=== PATIENT | male | born 1985 ===

== ENCOUNTER 2016-10-10 13:05 | Emergency (ER) | payer OTHER ==
[2016-10-10 13:36] VITALS: BP 132/79; PULSE 66; RESP 20; TEMP 97.8; O2SAT 98
[2016-10-10 13:37] VITALS: BMI 28.8
--- NOTE | 2016-10-10 13:59 | ED PDOC ---
HPI: Back Time Seen by Provider: 10/10/16 13:38 History Per: Patient History/Exam Limitations: no limitations Onset/Duration Of Symptoms: Days (2) Current Symptoms Are (Timing): Still Present Quality Of Discomfort: "Pain" Severity: Moderate Previous Symptoms: None Associated Symptoms: None Exacerbating Factor(s): Movement Additional History Per: Patient Additional Complaint(s): The pt is a 30yo male presents to the ED for evaluation of back pain which started yesterday. Pt reports 3 days ago, he was lifting heavy furniture around his house and yesterday noticed pain in his left lower back. Additionally, pt states yesterday when attempting to get out of a car, his pain worsened and has been progressively worse since then. Pt also reports today he noticed a "lump" in the location of pain, prompting his ED visit. Pt states he took Tylenol for pain with no relief. Pt denies any incontinence or urinary symptoms. Offers no additional medical complaints. Past Medical History Reviewed: Historical Data, Nursing Documentation, Vital Signs Vital Signs: Last Vital Signs Temp 97.8 F 10/10/16 13:36 Pulse 66 10/10/16 13:36 Resp 20 10/10/16 13:36 BP 132/79 10/10/16 13:36 Pulse Ox 98 10/10/16 13:36 - Medical History PMH: No Chronic Diseases - Surgical History Surgical History: No Surg Hx - Family History Family History: States: Unknown Family Hx - Living Arrangements Living Arrangements: With Family - Home Medications Home Medications: Ambulatory Orders Medication Instructions Recorded Cyclobenzaprine [Cyclobenzaprine 10 mg PO Q8 PRN #30 tab 10/10/16 HCl] Naproxen [Naprosyn] 500 mg PO BID PRN #30 tab 10/10/16 - Allergies Allergies/Adverse Reactions: Allergies Allergy/AdvReac Type Severity Reaction Status Date / Time Unobtainable Allergy Verified 01/31/13 10:30 Review of Systems ROS Statement: Except As Marked, All Systems Reviewed And Found Negative Genitourinary Male: Negative for: Dysuria, Incontinence Musculoskeletal: Positive for: Back Pain Physical Exam - Reviewed Nursing Documentation Reviewed: Yes Vital Signs Reviewed: Yes - Physical Exam Appears: Positive for: Well, Non-toxic, No Acute Distress Head Exam: Positive for: ATRAUMATIC, NORMAL INSPECTION, NORMOCEPHALIC Skin: Positive for: Normal Color Eye Exam: Positive for: Normal appearance Neck: Positive for: Normal Cardiovascular/Chest: Positive for: Regular Rate, Rhythm Respiratory: Negative for: Respiratory Distress Back: Positive for: Muscle Spasm (left lower back) Neurologic/Psych: Positive for: Alert, Oriented - ECG O2 Sat by Pulse Oximetry: 98 (RA) Pulse Ox Interpretation: Normal Medical Decision Making Medical Decision Making: Time: 1346 Impression: Muscle spasm Plan: -- Toradol 15 mg IM -- Pt to be d/c home with Rx flexeril, will give work note for wednesday. Advised to f/u with PCP in 1-2 days/ Scribe Attestation: All records were documented by Marisol Fuller, acting as a Scribe for ILEANA Negrete. Provider Scribe Attestation: All medical record entries made by the Scribe were at my direction and personally dictated by me. I have reviewed the chart and agree that the record accurately reflects my personal performance of the history, physical exam, medical decision making, and the department course for this patient. I have also personally directed, reviewed, and agree with the discharge instructions and disposition. Disposition - Clinical Impression Clinical Impression: Low back pain - Patient ED Disposition Is Patient to be Admitted: No - Disposition Referrals: [facility] [Outside] Disposition: Routine/Home Disposition Time: 14:05 Condition: GOOD Prescriptions: Cyclobenzaprine [Cyclobenzaprine HCl] 10 mg PO Q8 PRN #30 tab PRN Reason: Muscle Spasm Naproxen [Naprosyn] 500 mg PO BID PRN #30 tab PRN Reason: Pain Instructions: Acute Low Back Pain (ED) Forms: [facility] ED School/Work Excuse
== END 2016-10-10 14:29 | disposition home or self-care (01) ==
LOC: EDBD 13:05 → H.ER 13:05
DX: M54.5 Low back pain (principal)

== ENCOUNTER 2017-03-29 21:12 | Emergency (ER) | payer OTHER ==
[2017-03-29 21:12] VITALS: BMI 28.8
[2017-03-29 21:40] VITALS: BP 127/69; PULSE 65; RESP 18; TEMP 98.1; O2SAT 99
--- NOTE | 2017-03-29 22:56 | ED PDOC ---
HPI: Allergic Reaction Time Seen by Provider: 03/29/17 21:47 Chief Complaint (Nursing): Allergic Reaction Chief Complaint (Provider): Rash - After drinking cough medication History Per: Patient History/Exam Limitations: no limitations Onset/Duration Of Symptoms: Days Current Symptoms Are (Timing): Still Present Possible Cause: Medication Associated Symptoms: Skin Rash. denies: Swelling, Dyspnea, Trouble Swallowing, Dizziness Home/EMS Treatment: Benadryl (Reduced itchiness ) Severity: Moderate Pain Scale Rating Of: 5 Past Medical History Reviewed: Historical Data, Nursing Documentation, Vital Signs Vital Signs: Last Vital Signs Temp 98.1 F 03/29/17 21:36 Pulse 65 03/29/17 21:36 Resp 18 03/29/17 21:36 BP 127/69 03/29/17 21:36 Pulse Ox 99 03/29/17 21:36 - Medical History PMH: No Chronic Diseases - Surgical History Surgical History: No Surg Hx - Family History Family History: States: Unknown Family Hx - Living Arrangements Living Arrangements: With Family - Immunization History Hx Tetanus Toxoid Vaccination: No - Home Medications Home Medications: Ambulatory Orders Medication Instructions Recorded Cyclobenzaprine [Cyclobenzaprine 10 mg PO Q8 PRN #30 tab 10/10/16 HCl] Naproxen [Naprosyn] 500 mg PO BID PRN #30 tab 10/10/16 predniSONE [predniSONE Tab] 20 mg PO DAILY #12 tab 03/29/17 - Allergies Allergies/Adverse Reactions: Allergies Allergy/AdvReac Type Severity Reaction Status Date / Time No Known Allergies Allergy Verified 03/29/17 21:40 Review of Systems ROS Statement: Except As Marked, All Systems Reviewed And Found Negative Constitutional: Negative for: Fever, Chills Skin: Positive for: Rash Physical Exam - Reviewed Nursing Documentation Reviewed: Yes Vital Signs Reviewed: Yes - Physical Exam Appears: Positive for: Well, Non-toxic, No Acute Distress Head Exam: Positive for: ATRAUMATIC, NORMAL INSPECTION, NORMOCEPHALIC Skin: Positive for: Warm, Rash (Erythematous rash on the UE and abdomen ). Negative for: Normal Color Eye Exam: Positive for: Normal appearance ENT: Positive for: Normal ENT Inspection Neck: Positive for: Normal, Painless ROM Cardiovascular/Chest: Positive for: Regular Rate, Rhythm Respiratory: Positive for: Normal Breath Sounds. Negative for: Accessory Muscle Use, Respiratory Distress Back: Positive for: Normal Inspection Extremity: Positive for: Normal ROM Neurologic/Psych: Positive for: Alert, Oriented - ECG O2 Sat by Pulse Oximetry: 99 Disposition - Clinical Impression Clinical Impression: Allergic reaction - Patient ED Disposition Is Patient to be Admitted: No Counseled Patient/Family Regarding: Diagnosis, Need For Followup, Rx Given - Disposition Disposition: Routine/Home Disposition Time: 22:56 Condition: GOOD Prescriptions: predniSONE [predniSONE Tab] 20 mg PO DAILY #12 tab Instructions: Urticaria (ED)
== END 2017-03-29 22:59 | disposition home or self-care (01) ==
LOC: H.ER 21:12
DX: T78.40XA Allergy, unspecified, initial encounter (principal)
CPT/HCPCS: 96372; 99282; J2930

== ENCOUNTER 2017-11-29 20:36 | Emergency (ER) | payer SELFPAY ==
[2017-11-29 20:36] VITALS: BMI 28.8
[2017-11-29 20:51] VITALS: BP 146/96; PULSE 70; RESP 16; TEMP 98; O2SAT 100
== END 2017-11-29 21:33 | disposition left against medical advice (07) ==
LOC: H.ER 20:36
DX: Z02.89 Encounter for other administrative examinations (principal)